=== PATIENT | female | born 1965 | race Two or more races ===

== ENCOUNTER 2025-02-05 11:46 | Emergency (ER) | payer SELFPAY ==
[2025-02-05 12:11] LABS: #Basophils 0.04 10x3/uL (0.0-0.2); #Eosinophils 0.11 10x3/uL (0.0-0.7); #Monocytes 0.33 10x3/uL (0.11-0.59); #Neutrophils 3.22 10x3/uL (1.40-6.50); %Basophils 0.7 % (0.0-1.0); %Eosinophils 2.0 % (0.0-10.0); %Lymphocytes 32.5 % (21.0-51.0); %Monocytes 6.0 % (0.0-10.0); %Neutrophils 58.6 % (42.0-75.0); Hematocrit 41.0 % (36.0-47.0); Hemoglobin 13.9 g/dL (12.0-16.0); Mean Corpuscular Hemoglobin 27.3 pg (27.0-31.0); Mean Corpuscular Volume 80.4 fL (78.0-98.0); Platelet Count 200 10x3/uL (130-400); Red Blood Cell (RBC) Count 5.10 mill/uL (4.20-5.40); White Blood Cell (WBC) Count 5.50 10x3/uL (4.8-10.8)
[2025-02-05 12:30] LABS: ALT (SGPT) 47 U/L (Less than 34); AST (SGOT) 28 U/L (11-34); Albumin 4.2 g/dL (3.1-4.5); Alkaline Phosphatase 103 U/L (40-110); Anion Gap 14 mmol/L (10-20); BUN (Urea Nitrogen) 13 mg/dL (9.8-20.1); Bilirubin, Total 0.6 mg/dL (0.3-1.2); Calc. Creatinine Clearance 0 mL/min (70-130); Calcium 9.3 mg/dL (7.8-10.44); Carbon Dioxide 27 mmol/L (22-29); Chloride 100 mmol/L (98-107); Globulin 3.4 g/dL (2.4-3.5); Glucose 353 mg/dL (70-105); Magnesium 2.0 mg/dL (1.6-2.6); Potassium 4.3 mmol/L (3.5-5.1); Sodium 137 mmol/L (136-145)
[2025-02-05 14:18] LABS: Bacteria/HPF 2+ HPF (None Seen); CAUTI Indications for Culture Acute Hematuria; Glucose, Urine (Dipstick) Greater than 1000 mg/dL (Negative); Leukocyte 75 Leu/uL (Negative); Protein, Urine (Dipstick) Negative (Neg-Trace); RBC/HPF 0-3 HPF (0-3); Specific Gravity, Urine 1.022 (1.002-1.036)
[2025-02-05 14:21] LABS: Urine Culture Reflex Yes Yes
== END 2025-02-05 14:45 | disposition home or self-care (01) ==
LOC: ERS 11:46
DX: E11.65 Type 2 diabetes mellitus with hyperglycemia (principal); N39.0 Urinary tract infection, site not specified; I25.2 Old myocardial infarction
CPT/HCPCS: 36415; 36416; 80053; 81001; 82010; 83735; 84100; 84484; 85025; 87077; 87086; 87186; 93005; 96360